=== PATIENT | male | born 1990 | race Caucasian/White ===

== ENCOUNTER 2019-03-11 15:49 | Emergency (ER) | payer OTHER ==
[2019-03-11 16:12] VITALS: RESP 18
[2019-03-11] MEDS ORDERED: SODIUM CHLORIDE 0.9% 1,000 ML IV STA (16:14)
[2019-03-11 17:05] LABS: Basophils % (A) 0 %; Eosinophils # (A) 0.2 k/uL (0-0.7); Eosinophils % (A) 3 %; HCT 48.1 % (39.0-53.0); HGB 16.7 gm/dL (13.0-17.5); Lymphocytes # (A) 0.9 k/uL (1.0-4.8); Lymphocytes % (A) 15 %; MCH 29.1 pg (25.0-35.0); MCHC 34.8 g/dL (31.0-37.0); MCV 83.7 fL (80.0-100.0); Mean Platelet Volume 7.2; Monocytes # (A) 0.6 k/uL (0-1.0); Monocytes % (A) 9 %; Neutrophils # (A) 4.5 k/uL (1.3-7.7); Neutrophils % (A) 71 %; Platelet Count 230 k/uL (150-450); RBC 5.74 m/uL (4.30-5.90); RDW 14.8 % (11.5-15.5); WBC 6.4 k/uL (3.8-10.6)
--- NOTE | 2019-03-11 17:06 | XR ---
EXAMINATION TYPE: XR chest 2V DATE OF EXAM: 03/11/2019 COMPARISON: 08/15/2015 HISTORY: Syncope TECHNIQUE: Frontal and lateral views of the chest are obtained. FINDINGS: Heart and mediastinum are normal. Lungs are clear. Diaphragm is normal. Bony thorax appear s normal. IMPRESSION: Normal chest. No change.
[2019-03-11 17:07] LABS: Partial Thromboplastin Time 24.7 sec (22.0-30.0); Prothrombin Time 10.4 sec (9.0-12.0)
[2019-03-11 17:08] LABS: ALT 32 U/L (21-72); AST 28 U/L (17-59); African American GFR (CKD) >90 (>60 ml/min/1.73 sqM); Albumin 4.5 g/dL (3.5-5.0); Alkaline Phosphatase 72 U/L (38-126); Anion Gap 10 mmol/L; Blood Urea Nitrogen 14 mg/dL (9-20); Calcium 9.4 mg/dL (8.4-10.2); Carbon Dioxide 24 mmol/L (22-30); Chloride 109 mmol/L (98-107); Glucose 115 mg/dL (74-99); Magnesium 2.2 mg/dL (1.6-2.3); Potassium 3.9 mmol/L (3.5-5.1); Sodium 143 mmol/L (137-145); Total Bilirubin 0.4 mg/dL (0.2-1.3); Total Protein 7.4 g/dL (6.3-8.2)
[2019-03-11 17:56] LABS: Amorphous Sediment,Urine Rare /hpf; Appearance,Urine Clear (Clear); Bilirubin,Urine Negative (Negative); Blood,Urine Negative (Negative); Calcium Oxalate Crystals,Urine Few /hpf; Color,Urine Yellow; Glucose,Urine (UA) Trace (Negative); Ketones,Urine Negative (Negative); Leukocyte Esterase,Urine Negative (Negative); Mucus,Urine Few /hpf; Nitrite,Urine Negative (Negative); Protein,Urine 1+ (Negative); Specific Gravity,Urine 1.037 (1.001-1.035); Squamous Epithelial Cell,Urine <1 /hpf (0-4); WBC,Urine 1 /hpf (0-5)
[2019-03-11 17:57] LABS: Amphetamine Screen,Urine Not Detected (NotDetected); Barbiturate Screen,Urine Not Detected (NotDetected); Benzodiazepines Screen,Urine Not Detected (NotDetected); Cocaine Screen,Urine Not Detected (NotDetected); Methadone Screen, Urine Not Detected (NotDetected); Opiate Screen,Urine Not Detected (NotDetected); Oxycodone Screen, Urine Not Detected (NotDetected); Phencyclidine Screen,Urine Not Detected (NotDetected); Tricyclic Antidepressant,Urine Not Detected (NotDetected); Urn Cannabinoid Scrn Not Detected (NotDetected)
--- NOTE | 2019-03-11 17:58 | ED ---
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 Patient states last week he has had cough congestion he states he is a smoker and sometimes his chest is tight when he takes a deep breath. He denies any chest pain or overt shortness of breath. She has a leg swelling history of blood clots. Patient states he thinks he may have been exposed to black mold but is unsure because his house is dirty. In addition patient states that he has had joint pain for the past 2 months he is not sure what is from. Patient denies any penile lesions. Patient denies any headache dizziness neck stiffness fever or chills night sweats. She also states the past 2-3 weeks he has been more fatigued and usual he states he is so tired he was ASLEEP and falls over work. He states he has been caught by his boss sleeping on multiple occassions, he denies passing out, fall or trauma to head or neck. Patient states despite falling asleep at work he states when he comes home he cannot sleep and has been very fatigued. Patient denies any painful nodules on the fingers he denies any rashes he does nausea vomiting abdominal pain or back pain. Remaining review of systems negative upon arrival patient appears well vital signs within acceptable limits. Patient afebrile. - Related Data Previous Rx's Medication Instructions Recorded Albuterol Inhaler [Ventolin Hfa 1 - 2 puff INHALATION RT-Q6H PRN 7 03/11/19 Inhaler] Days #1 inhaler Azithromycin [Zithromax Z-pack] 0 mg PO DIRECTED #6 tab 03/11/19 predniSONE 20 mg PO BID 4 Days #8 tab 03/11/19 Allergies Allergy/AdvReac Type Severity Reaction Status Date / Time No Known Allergies Allergy Verified 03/11/19 16:11 Review of Systems ROS Statement: Those systems with pertinent positive or pertinent negative responses have been documented in the HPI. ROS Other: All systems not noted in ROS Statement are negative. Past Medical History Past Medical History: Respiratory Disorder History of Any Multi-Drug Resistant Organisms: None Reported Additional Past Surgical History / Comment(s): oral surgery Past Psychological History: Anxiety, Depression Smoking Status: Current every day smoker Past Alcohol Use History: Occasional Past Drug Use History: Heroin General Exam - General Exam Comments Initial Comments: General: The patient is awake and alert, in no distress, and does not appear acutely ill. Eye: +3 mm pupils are equal, round and reactive to light, extra-ocular movements are intact. No nystagmus. There is normal conjunctiva bilaterally. No signs of icterus. No photophobia Ears, nose, mouth and throat: There are moist mucous membranes and no oral lesions. Oropharynx was not erythematous there is no tonsillar enlargement exudates or lesions. Uvula midline. Tympanic membranes are not erythematous or is no effusions bulging or retraction. No tenderness to palpation of the mastoid. No anterior cervical lymphadenopathy. Rhinorrhea, clear and bilateral nares. No tripoding, no drooling. Neck: The neck is supple, there is no tenderness or JVD. No nuchal rigidity negative Brudzinski and Kernig Cardiovascular: There is a regular rate and rhythm. No murmur, rub or gallop is appreciated. Respiratory: Expiratory wheeze on exam. respirations are non-labored, breath sounds are equal. No stridor, rales, or rhonchi. No retractions or abdominal breathing. Gastrointestinal: Soft, non-distended, non-tender abdomen without masses or organomegaly noted. There is no rebound or guarding present. Bowel sounds are unremarkable. Musculoskeletal: Normal ROM, no tenderness. Strength 5/5. Sensation intact. Radial pulses equal bilaterally 2+. Neurological: A&O x 3. CN II-XII intact, There are no obvious motor or sensory deficits. Coordination appears grossly intact. Speech appears normal, no muffling. Skin: Skin is warm and dry and no rashes or lesions are noted. No extremity edema Psychiatric: Cooperative Limitations: no limitations Course Vital Signs 03/11/19 03/11/19 03/11/19 16:07 18:17 18:27 Temperature 99.0 F Pulse Rate 72 70 74 Respiratory 18 Rate Blood Pressure 131/77 O2 Sat by Pulse 98 Oximetry 03/11/19 19:15 Temperature 97.9 F Pulse Rate 100 Respiratory 18 Rate Blood Pressure 122/69 O2 Sat by Pulse 98 Oximetry EKG Findings - EKG Comments: EKG Findings:: A 12-lead EKG was performed and shows the following: Rate is 98bp m, and rhythm is normal sinus. There are normal QRS complexes and normal R-wave progression. ST segments have no elevation or depression, and OR segments appear normal. OR interval 140 ms, QRS duration 84 ms, QT/QTC 326/416 ms. Right axis. No ST elevation or depression. EKG compared with that of 2015-no acute changes. Medical Decision Making - Medical Decision Making Appearing 28-year-old male presenting for multiple complaints. Believes is exposed to mold. Lungs have expiratory wheeze on exam. Patient given DuoNeb treatment steroid. Patient is every day smoker. Educated on smoking cessation. Patient states improvement of symptoms. Patient's been complaining of cough. Oropharynx examination unremarkable. Patient denies chest pain. No murmur heard on examination. Patient afebrile. No leukocytosis. Laboratory studies unremarkable. Does complain of nonspecific joint pain of various joints on and off for the past few months. Rheumatological testing was initiated in the emergency department. Endocrine patient follows these results with primary care provider--and also recommended primary follow-up in the next 1-2 days. Patient states he is ready for discharge. He does not want another DuoNeb treatment. There is significant improvement of extremity wheeze. Patient was provided albuterol inhaler outpatient as well as azithromycin and steroids. For treatment of acute bronchitis. Return parameters were discussed at length the patient verbalized understanding. Patient was discharged appearing well after discussing the case with her provider Dr. Dorman - Lab Data Result diagrams: 03/11/19 16:23 03/11/19 16:23 Lab Results 03/11/19 03/11/19 03/11/19 Range/Units 16:23 16:23 16:23 WBC 6.4 (3.8-10.6) k/uL RBC 5.74 (4.30-5.90) m/uL Hgb 16.7 (13.0-17.5) gm/dL Hct 48.1 (39.0-53.0) % MCV 83.7 (80.0-100.0) fL MCH 29.1 (25.0-35.0) pg MCHC 34.8 (31.0-37.0) g/dL RDW 14.8 (11.5-15.5) % Plt Count 230 (150-450) k/uL Neutrophils % 71 % Lymphocytes % 15 % Monocytes % 9 % Eosinophils % 3 % Basophils % 0 % Neutrophils # 4.5 (1.3-7.7) k/uL Lymphocytes # 0.9 L (1.0-4.8) k/uL Monocytes # 0.6 (0-1.0) k/uL Eosinophils # 0.2 (0-0.7) k/uL Basophils # 0.0 (0-0.2) k/uL PT 10.4 (9.0-12.0) sec INR 1.0 (<1.2) APTT 24.7 (22.0-30.0) sec Sodium 143 (137-145) mmol/L Potassium 3.9 (3.5-5.1) mmol/L Chloride 109 H (98-107) mmol/L Carbon Dioxide 24 (22-30) mmol/L Anion Gap 10 mmol/L BUN 14 (9-20) mg/dL Creatinine 0.74 (0.66-1.25) mg/dL Est GFR (CKD-EPI)AfAm >90 (>60 ml/min/1.73 sqM) Est GFR (CKD-EPI)NonAf >90 (>60 ml/min/1.73 sqM) Glucose 115 H (74-99) mg/dL Plasma Lactic Acid Karlos (0.7-2.0) mmol/L Calcium 9.4 (8.4-10.2) mg/dL Magnesium 2.2 (1.6-2.3) mg/dL Total Bilirubin 0.4 (0.2-1.3) mg/dL AST 28 (17-59) U/L ALT 32 (21-72) U/L Alkaline Phosphatase 72 (38-126) U/L Troponin I (0.000-0.034) ng/mL C-Reactive Protein (<10.0) mg/L Total Protein 7.4 (6.3-8.2) g/dL Albumin 4.5 (3.5-5.0) g/dL Urine Color Urine Appearance (Clear) Urine pH (5.0-8.0) Ur Specific Ashburn (1.001-1.035) Urine Protein (Negative) Urine Glucose (UA) (Negative) Urine Ketones (Negative) Urine Blood (Negative) Urine Nitrite (Negative) Urine Bilirubin (Negative) Urine Urobilinogen (<2.0) mg/dL Ur Leukocyte Esterase (Negative) Urine WBC (0-5) /hpf Ur Squamous Epith Cells (0-4) /hpf Calcium Oxalate Crystal (None) /hpf Amorphous Sediment (None) /hpf Urine Mucus (None) /hpf Urine Opiates Screen (NotDetected) Ur Oxycodone Screen (NotDetected) Urine Methadone Screen (NotDetected) Ur Propoxyphene Screen (NotDetected) Ur Barbiturates Screen (NotDetected) U Tricyclic Antidepress (NotDetected) Ur Phencyclidine Scrn (NotDetected) Ur Amphetamines Screen (NotDetected) U Methamphetamines Scrn (NotDetected) U Benzodiazepines Scrn (NotDetected) Urine Cocaine Screen (NotDetected) U Marijuana (THC) Screen (NotDetected) 03/11/19 03/11/19 03/11/19 Range/Units 16:23 16:23 16:23 WBC (3.8-10.6) k/uL RBC (4.30-5.90) m/uL Hgb (13.0-17.5) gm/dL Hct (39.0-53.0) % MCV (80.0-100.0) fL MCH (25.0-35.0) pg MCHC (31.0-37.0) g/dL RDW (11.5-15.5) % Plt Count (150-450) k/uL Neutrophils % % Lymphocytes % % Monocytes % % Eosinophils % % Basophils % % Neutrophils # (1.3-7.7) k/uL Lymphocytes # (1.0-4.8) k/uL Monocytes # (0-1.0) k/uL Eosinophils # (0-0.7) k/uL Basophils # (0-0.2) k/uL PT (9.0-12.0) sec INR (<1.2) APTT (22.0-30.0) sec Sodium (137-145) mmol/L Potassium (3.5-5.1) mmol/L Chloride (98-107) mmol/L Carbon Dioxide (22-30) mmol/L Anion Gap mmol/L BUN (9-20) mg/dL Creatinine (0.66-1.25) mg/dL Est GFR (CKD-EPI)AfAm (>60 ml/min/1.73 sqM) Est GFR (CKD-EPI)NonAf (>60 ml/min/1.73 sqM) Glucose (74-99) mg/dL Plasma Lactic Acid Karlos 1.6 (0.7-2.0) mmol/L Calcium (8.4-10.2) mg/dL Magnesium (1.6-2.3) mg/dL Total Bilirubin (0.2-1.3) mg/dL AST (17-59) U/L ALT (21-72) U/L Alkaline Phosphatase (38-126) U/L Troponin I <0.012 (0.000-0.034) ng/mL C-Reactive Protein 50.9 H (<10.0) mg/L Total Protein (6.3-8.2) g/dL Albumin (3.5-5.0) g/dL Urine Color Urine Appearance (Clear) Urine pH (5.0-8.0) Ur Specific Ashburn (1.001-1.035) Urine Protein (Negative) Urine Glucose (UA) (Negative) Urine Ketones (Negative) Urine Blood (Negative) Urine Nitrite (Negative) Urine Bilirubin (Negative) Urine Urobilinogen (<2.0) mg/dL Ur Leukocyte Esterase (Negative) Urine WBC (0-5) /hpf Ur Squamous Epith Cells (0-4) /hpf Calcium Oxalate Crystal (None) /hpf Amorphous Sediment (None) /hpf Urine Mucus (None) /hpf Urine Opiates Screen (NotDetected) Ur Oxycodone Screen (NotDetected) Urine Methadone Screen (NotDetected) Ur Propoxyphene Screen (NotDetected) Ur Barbiturates Screen (NotDetected) U Tricyclic Antidepress (NotDetected) Ur Phencyclidine Scrn (NotDetected) Ur Amphetamines Screen (NotDetected) U Methamphetamines Scrn (NotDetected) U Benzodiazepines Scrn (NotDetected) Urine Cocaine Screen (NotDetected) U Marijuana (THC) Screen (NotDetected) 03/11/19 Range/Units 17:33 WBC (3.8-10.6) k/uL RBC (4.30-5.90) m/uL Hgb (13.0-17.5) gm/dL Hct (39.0-53.0) % MCV (80.0-100.0) fL MCH (25.0-35.0) pg MCHC (31.0-37.0) g/dL RDW (11.5-15.5) % Plt Count (150-450) k/uL Neutrophils % % Lymphocytes % % Monocytes % % Eosinophils % % Basophils % % Neutrophils # (1.3-7.7) k/uL Lymphocytes # (1.0-4.8) k/uL Monocytes # (0-1.0) k/uL Eosinophils # (0-0.7) k/uL Basophils # (0-0.2) k/uL PT (9.0-12.0) sec INR (<1.2) APTT (22.0-30.0) sec Sodium (137-145) mmol/L Potassium (3.5-5.1) mmol/L Chloride (98-107) mmol/L Carbon Dioxide (22-30) mmol/L Anion Gap mmol/L BUN (9-20) mg/dL Creatinine (0.66-1.25) mg/dL Est GFR (CKD-EPI)AfAm (>60 ml/min/1.73 sqM) Est GFR (CKD-EPI)NonAf (>60 ml/min/1.73 sqM) Glucose (74-99) mg/dL Plasma Lactic Acid Karlos (0.7-2.0) mmol/L Calcium (8.4-10.2) mg/dL Magnesium (1.6-2.3) mg/dL Total Bilirubin (0.2-1.3) mg/dL AST (17-59) U/L ALT (21-72) U/L Alkaline Phosphatase (38-126) U/L Troponin I (0.000-0.034) ng/mL C-Reactive Protein (<10.0) mg/L Total Protein (6.3-8.2) g/dL Albumin (3.5-5.0) g/dL Urine Color Yellow Urine Appearance Clear (Clear) Urine pH 6.0 (5.0-8.0) Ur Specific Ashburn 1.037 H (1.001-1.035) Urine Protein 1+ H (Negative) Urine Glucose (UA) Trace H (Negative) Urine Ketones Negative (Negative) Urine Blood Negative (Negative) Urine Nitrite Negative (Negative) Urine Bilirubin Negative (Negative) Urine Urobilinogen 2.0 (<2.0) mg/dL Ur Leukocyte Esterase Negative (Negative) Urine WBC 1 (0-5) /hpf Ur Squamous Epith Cells <1 (0-4) /hpf Calcium Oxalate Crystal Few H (None) /hpf Amorphous Sediment Rare H (None) /hpf Urine Mucus Few H (None) /hpf Urine Opiates Screen Not Detected (NotDetected) Ur Oxycodone Screen Not Detected (NotDetected) Urine Methadone Screen Not Detected (NotDetected) Ur Propoxyphene Screen Not Detected (NotDetected) Ur Barbiturates Screen Not Detected (NotDetected) U Tricyclic Antidepress Not Detected (NotDetected) Ur Phencyclidine Scrn Not Detected (NotDetected) Ur Amphetamines Screen Not Detected (NotDetected) U Methamphetamines Scrn Not Detected (NotDetected) U Benzodiazepines Scrn Not Detected (NotDetected) Urine Cocaine Screen Not Detected (NotDetected) U Marijuana (THC) Screen Not Detected (NotDetected) Disposition Clinical Impression: Bronchitis, Cough, Fatigue Disposition: HOME SELF-CARE Condition: Good Instructions (If sedation given, give patient instructions): How to Stop Smoking (ED), Acute Bronchitis (ED) Additional Instructions: Please use medication as discussed. Please follow-up with family doctor in the next 2 days, please retrieve records from the hospital to review with primary care provider, and to review results from rheumatoid testing. Please return to emergency room if the symptoms increase or worsen or for any other concerns. Please refrain from smoking. Prescriptions: predniSONE 20 mg PO BID 4 Days #8 tab Albuterol Inhaler [Ventolin Hfa Inhaler] 1 - 2 puff INHALATION RT-Q6H PRN 7 Days #1 inhaler PRN Reason: Wheezing Azithromycin [Zithromax Z-pack] 0 mg PO DIRECTED #6 tab Is patient prescribed a controlled substance at d/c from ED?: No Referrals: Christian Schmitz MD [Primary Care Provider] - 1-2 days Time of Disposition: 18:58
[2019-03-11] MEDS ORDERED: IPRATROPIUM-ALBUTEROL 3 ML NEB INHALATION STA (17:59)
[2019-03-11] MEDS ORDERED: methylPREDNISolone SOD SUCCI 125 MG/2 ML VIAL IV STA (17:59)
[2019-03-11 19:16] VITALS: BP 122/69; PULSE 100; TEMP 97.9
[2019-03-12 09:34] LABS: Rheumatoid Factor 12 IU/mL (0-15)
--- NOTE | 2019-03-13 05:42 | CDI ---
Documentation Clarification OP Dear Samina FOURNIER, PAC Please provide smoking cessation total time spent on counselling . Thank you, Kathy Jim Flagman If you have any questions, please contact Tram Driver at [phone] [facility]
== END 2019-03-11 19:15 | disposition home or self-care (01) ==
LOC: EC 15:49
DX: J20.9 Acute bronchitis, unspecified (principal); M79.89 Other specified soft tissue disorders; F17.200 Nicotine dependence, unspecified, uncomplicated; Z71.6 Tobacco abuse counseling
CPT/HCPCS: 99283; 96374; 96361; 99406; 36415; 94640; 93005; 80053; 83605; 83735; 84484; 85025; 85610; 85730; 86140; 86431; 81001; 87040; 86038; 80306; 71046; J2930

== ENCOUNTER 2019-07-17 13:41 | Emergency (ER) | payer OTHER ==
[2019-07-17 13:47] VITALS: TEMP 97.8
--- NOTE | 2019-07-17 14:36 | ED ---
Lower Extremity Injury HPI - General Chief Complaint: Extremity Injury, Lower Stated Complaint: Leg pain Time Seen by Provider: 07/17/19 13:58 Source: patient Mode of arrival: ambulatory Limitations: no limitations - History of Present Illness Initial Comments: 28-year-old male denies past medical history present to ER for right hip low back pain. Patient states that he did a front flip off a picnic table approximately 3 and half weeks ago. Patient states that he has had pain in the right leg sense near the pelvic region since. Patient states makes walking difficult. Patient denies any paresthesias and numbness muscle weakness loss of sensation loss of bowel bladder control, urinary retention, fevers, IVDU, Hx of CA. Patient denies any injury to chest, neck or head. Denies LOC at time. Denies any other complaints aside from the hip,back,pelvic pain. Pt ambulatory on arrival, no signs of distress. - Related Data Allergies Allergy/AdvReac Type Severity Reaction Status Date / Time No Known Allergies Allergy Verified 07/17/19 13:47 Review of Systems ROS Statement: Those systems with pertinent positive or pertinent negative responses have been documented in the HPI. ROS Other: All systems not noted in ROS Statement are negative. 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 Eye: +3 mm pupils are equal, round and reactive to light, extra-ocular movements are intact. No nystagmus. There is normal conjunctiva bilaterally. No signs of icterus. Ears, nose, mouth and throat: There are moist mucous membranes and no oral lesions. Neck: The neck is supple, there is no tenderness or JVD. Cardiovascular: There is a regular rate and rhythm. No murmur, rub or gallop is appreciated. Respiratory: Lungs are clear to auscultation, respirations are non-labored, breath sounds are equal. No wheezes, stridor, rales, or rhonchi. Gastrointestinal: Soft, non-distended, non-tender abdomen without masses or organomegaly noted. There is no rebound or guarding present. No CVA tenderness. Bowel sounds are unremarkable. Musculoskeletal: No bruising of the spine, paravertebral tenderness noted of the right side of lumbar spine. No thoracic or cervical spine pain to palpation. Normal inspection of the low back hips motion wheeze bilaterally. No ecchymosis soft tissue swelling or redness. Patient noted to fully range at the hips knees and ankles bilaterally. Strength 5/5 of the left LE, refuses to fully strength test right LE secondary to pain in the hp. Sensation intact including saddle region. DP pulses equal bilaterally 2+. No calf swelling. Neurological: A&O x 3. CN II-XII intact grossly, There are no obvious motor or sensory deficits. Coordination appears grossly intact. Speech is normal. Skin: Skin is warm and dry and no rashes or lesions are noted. Psychiatric: Cooperative, appropriate mood & affect, normal judgment. Limitations: no limitations Course Vital Signs 07/17/19 13:43 Temperature 97.8 F Pulse Rate 91 Respiratory 20 Rate Blood Pressure 126/71 O2 Sat by Pulse 95 Oximetry Medical Decision Making - Medical Decision Making 28-year-old male presents emergency department for evaluation of hip pain after fall 3.5 weeks ago. XR suspicious for inferior rami fracture. CT confirmed non displaced fracture. No lumbar abnormalities noted. No other ring fractures appreciated. Discussed case with attending provider Dr. Negron who recommended ordering patient non weight bearing with crutches and given orthopedic f/u. Patient agreeable with care plan. Discharged appearing well, agreeable with return parameters and discharge. Disposition Clinical Impression: Inferior pubic ramus fracture, Right hip pain, Fall Disposition: HOME SELF-CARE Condition: Good Instructions (If sedation given, give patient instructions): Pelvic Fracture (ED) Additional Instructions: Please use medication as discussed. Please follow-up with orthopedic surgery within the next week. Please return to emergency room if the symptoms increase or worsen or for any other concerns. Is patient prescribed a controlled substance at d/c from ED?: No Referrals: None,Stated [Primary Care Provider] - 1-2 days Jerry Vivar MD [STAFF PHYSICIAN] - 1-2 days Time of Disposition: 16:20
--- NOTE | 2019-07-17 14:47 | XR ---
EXAM TYPE: LUMBAR SPINE X RAY SERIES COMPARISON: NONE HISTORY: pain, TECHNIQUE: 3 views are submitted. FINDINGS: Alignment is anatomic. The pedicles are intact. The transverse processes are intact. There is no spondylolisthesis. IMPRESSION: 1. No acute process.
--- NOTE | 2019-07-17 14:50 | XR ---
EXAMINATION TYPE: XR Hip RT and AP Pelvis DATE OF EXAM: 07/17/2019 COMPARISON: NONE HISTORY: pain TECHNIQUE: A single AP view of the pelvis is obtained. Two views of the right hip are obtained. FINDINGS: There is a calcification along the acetabular rim be associated with chronic acetabular la bral tear. The femur and femoral neck appear to be intact. There is a subtle deformity along the righ t inferior pubic ramus vague haziness along the cortical margin. This is seen adjacent to the pubic s ymphysis paramedian to the right. SI joints are symmetric. IMPRESSION: 1. Question a deformity involving the right inferior pubic ramus correlate with point tenderness and if necessary with CT of the pelvis.
--- NOTE | 2019-07-17 16:05 | CT ---
EXAMINATION TYPE: CT lumbar spine wo con, CT pelvis wo con DATE OF EXAM: 07/17/2019 COMPARISON: Plain films same date HISTORY: pain post fall. leg weakness. CT DLP: 477.2 (accession [id number]), 205.4 (accession [id number]) mGycm Automated exposure control for dose reduction was used. An unenhanced CT of the lumbar spine and pelvis was performed. Bone and soft tissue window settings are submitted as well as coronal and sagittal reconstructions. FINDINGS: Lumbar vertebral bodies show preserved height and alignment. Disc spaces are maintained. No evident s mariela stenosis or foraminal encroachment. No evident disc herniation. Nonobstructive calculus present at the lower pole the right kidney is only 2 mm in size. Inferior pubic ramus fracture on the right is noted, there may be associated callus formation. More subtle fracture involves the medial aspect o f the acetabulum which is nondisplaced, coronal image #38 through the pelvis, axial image #60 L1-L2: Normal disc space height. No disc herniation protrusion or central stenosis. No facet joint arthropathy. No evidence for foraminal encroachment. L2-L3: Normal disc space height. No disc herniation protrusion or central stenosis. No facet joint arthropathy. No evidence for foraminal encroachment. L3-L4: Normal disc space height. No disc herniation protrusion or central stenosis. No facet joint arthropathy. No evidence for foraminal encroachment. L4-L5: Normal disc space height. No disc herniation protrusion or central stenosis. No facet joint arthropathy. No evidence for foraminal encroachment. L5-S1: Normal disc space height. No disc herniation protrusion or central stenosis. No facet joint arthropathy. No evidence for foraminal encroachment. IMPRESSION: Inferior pubic ramus fracture on the right correlates with patient's plain film. Subtle a rticular fracture involving the junction of the ramus with the ischium at the medial aspect of the ac etabulum. No paraspinal masses are identified. Lumbar segments are intact.
[2019-07-17] MEDS ORDERED: ACET/COD 300 MG/30 MG STARTER PACK 6 TAB BTL PO STA (16:28)
[2019-07-17 17:13] VITALS: BP 124/78; PULSE 88; RESP 16
== END 2019-07-17 16:34 | disposition home or self-care (01) ==
LOC: EC 13:41 → MERGE 13:41 → EC 16:34
DX: S32.591A Other specified fracture of right pubis, initial encounter for closed fracture (principal); F17.200 Nicotine dependence, unspecified, uncomplicated; X58.XXXA Exposure to other specified factors, initial encounter
CPT/HCPCS: 72100; 72131; 72192; 73502; 99284

== ENCOUNTER 2019-09-25 12:55 | Emergency (ER) | payer OTHER ==
[2019-09-25 13:54] VITALS: BP 124/80; PULSE 93; RESP 17; TEMP 98.1
--- NOTE | 2019-09-25 14:18 | ED ---
ENT HPI - General Chief complaint: Dental/Oral Stated complaint: lt sided jaw pain Time Seen by Provider: 09/25/19 13:59 Source: patient, RN notes reviewed Mode of arrival: ambulatory Limitations: no limitations - History of Present Illness Initial comments: 28-year-old male presents emergency Department chief complaint left-sided throat pain, jaw pain. Patient states he is awake ulcerated area by his upper left side. Patient states is painful states it hurts to open close in it. Patient states that he's had no prior oral surgeries. Denies any missing dentition no fevers or chills. He does milligrams his teeth at nighttime. - Related Data Previous Rx's Medication Instructions Recorded Albuterol Inhaler [Ventolin Hfa 1 - 2 puff INHALATION RT-Q6H PRN 7 03/11/19 Inhaler] Days #1 inhaler Azithromycin [Zithromax Z-pack] 0 mg PO DIRECTED #6 tab 03/11/19 predniSONE 20 mg PO BID 4 Days #8 tab 03/11/19 Allergies Allergy/AdvReac Type Severity Reaction Status Date / Time No Known Allergies Allergy Verified 07/18/19 13:45 Review of Systems ROS Statement: Those systems with pertinent positive or pertinent negative responses have been documented in the HPI. ROS Other: All systems not noted in ROS Statement are negative. Past Medical History Past Medical History: Respiratory Disorder Additional Past Medical History / Comment(s): Aspergers History of Any Multi-Drug Resistant Organisms: None Reported Additional Past Surgical History / Comment(s): dental surgery Past Psychological History: Anxiety, Depression Smoking Status: Current every day smoker Past Alcohol Use History: Occasional Past Drug Use History: Heroin, None Reported General Exam Limitations: no limitations General appearance: alert, in no apparent distress Head exam: Present: atraumatic, normocephalic, normal inspection Eye exam: Present: normal appearance, PERRL, EOMI. Absent: scleral icterus, conjunctival injection, periorbital swelling ENT exam: Present: mucous membranes moist. Absent: normal exam, normal oropharynx (Patient has noted injury to the vehicle, [employer], there is an ulceration at slightly erythematous surrounding behind tooth #16) Neck exam: Present: normal inspection, full ROM. Absent: tenderness, meningi smus, lymphadenopathy Respiratory exam: Present: normal lung sounds bilaterally. Absent: respiratory distress, wheezes, rales, rhonchi, stridor Cardiovascular Exam: Present: regular rate, normal rhythm, normal heart sounds. Absent: systolic murmur, diastolic murmur, rubs, gallop, clicks Neurological exam: Present: alert Skin exam: Present: warm, dry, intact, normal color. Absent: rash Course Vital Signs 09/25/19 13:51 Temperature 98.1 F Pulse Rate 93 Respiratory 17 Rate Blood Pressure 124/80 O2 Sat by Pulse 96 Oximetry Medical Decision Making - Medical Decision Making X-rays are unremarkable. Patient has TMJ type symptoms in the left, there is an the canker sore noted. Patient will be discharged return parameters were discussed. Disposition Clinical Impression: Temporomandibular joint disorder, Canker sore Disposition: HOME SELF-CARE Condition: Stable Instructions (If sedation given, give patient instructions): Temporomandibular Disorder (ED), Canker Sores (ED) Additional Instructions: Please return to the Emergency Department if symptoms worsen or any other concerns. Is patient prescribed a controlled substance at d/c from ED?: No Referrals: None,Stated [Primary Care Provider] - 1-2 days Time of Disposition: 15:14
--- NOTE | 2019-09-25 14:35 | XR ---
EXAMINATION TYPE: XR mandible complete DATE OF EXAM: 09/25/2019 COMPARISON: NONE HISTORY: Left-sided pain TECHNIQUE: 5 views FINDINGS: Mandibular ring is intact. Maxilla appears intact. Temporomandibular joints appear intact. There is no evidence of a fracture. IMPRESSION: Negative mandible exam. No fracture.
== END 2019-09-25 15:48 | disposition home or self-care (01) ==
LOC: EC 12:55
DX: K12.0 Recurrent oral aphthae (principal); M26.602 Left temporomandibular joint disorder, unspecified; F17.200 Nicotine dependence, unspecified, uncomplicated
CPT/HCPCS: 70110; 99283

== ENCOUNTER 2019-12-08 17:39 | Emergency (ER) | payer OTHER ==
[2019-12-08 17:44] VITALS: RESP 18
--- NOTE | 2019-12-08 17:58 | ED ---
Upper Extremity HPI - General Chief Complaint: Extremity Injury, Upper Stated Complaint: [facility] Injury Time Seen by Provider: 12/08/19 17:46 Source: patient Mode of arrival: ambulatory Limitations: no limitations - History of Present Illness Initial Comments: 28-year-old male presenting for right index finger injury. Patient states he crushed his right index finger in a machine at work. He states he sustained an abrasion over the PIP joint. Patient states he is able to fully range the digit however is swollen. Patient has a numbness tingling or loss sensation he denies any decreased strength. Patient denies any injury to the hand distal to the MCP joint he denies any pain in the wrists or elbows. Patient denies any varus or injury to the large laceration. Patient states he cleansed it extensively after the injury occurred and placed antibiotic ointment and a bandage. Remaining review of system negative.States tetanus is UTD. - Related Data Previous Rx's Medication Instructions Recorded Albuterol Inhaler [Ventolin Hfa 1 - 2 puff INHALATION RT-Q6H PRN 7 03/11/19 Inhaler] Days #1 inhaler Azithromycin [Zithromax Z-pack] 0 mg PO DIRECTED #6 tab 03/11/19 predniSONE [Deltasone] 20 mg PO BID 4 Days #8 tab 03/11/19 Allergies Allergy/AdvReac Type Severity Reaction Status Date / Time No Known Allergies Allergy Verified 12/08/19 17:44 Review of Systems ROS Statement: Those systems with pertinent positive or pertinent negative responses have been documented in the HPI. ROS Other: All systems not noted in ROS Statement are negative. Past Medical History Past Medical History: Respiratory Disorder Additional Past Medical History / Comment(s): Aspergers History of Any Multi-Drug Resistant Organisms: None Reported Past Surgical History: No Surgical Hx Reported Additional Past Surgical History / Comment(s): dental surgery Past Psychological History: Anxiety, Depression Smoking Status: Current every day smoker Past Alcohol Use History: Occasional Past Drug Use History: Heroin, None Reported General Exam - General Exam Comments Initial Comments: General: The patient is awake and alert, in no distress, and does not appear acutely ill. Eye: +3 mm pupils are equal, round and reactive to light, extra-ocular movements are intact. No nystagmus. There is normal conjunctiva bilaterally. No signs of icterus. Ears, nose, mouth and throat: There are moist mucous membranes and no oral lesions. Neck: The neck is supple, there is no tenderness or JVD. Cardiovascular: There is a regular rate and rhythm. No murmur, rub or gallop is appreciated. Respiratory: Lungs are clear to auscultation, respirations are non-labored, breath sounds are equal. No wheezes, stridor, rales, or rhonchi. Gastrointestinal: Soft, non-distended, non-tender abdomen without masses or organomegaly noted. There is no rebound or guarding present. Musculoskeletal: Upon inspection of the hands b/l there is a superficial abrasion at the DIP joint. Slight decrease of ROM with flexion at the DIP joint, otherwise normal ROM at MCP and PIP joint. Strength appears preserved no forced flexed or extended positioning. Sensation intact proximal or distal to injury site. Radial pulses equal bilaterally 2+.Capillary refill < 3 seconds. Neurological: A&O x 3. CN II-XII intact grossly, There are no obvious motor or sensory deficits. Coordination appears grossly intact. Speech is normal. Skin: Skin is warm and dry and no rashes or lesions are noted. Psychiatric: Cooperative, appropriate mood & affect, normal judgment. Limitations: no limitations Course Vital Signs 12/08/19 12/08/19 17:42 18:55 Temperature 97.6 F 97.2 F L Pulse Rate 101 H 97 Respiratory 18 18 Rate Blood Pressure 135/87 136/86 O2 Sat by Pulse 98 98 Oximetry Procedures - Orthopedic Splinting/Casting Injury #1 Side: right Upper Extremity Injury Location: finger (rounded flexed finger splint distal to the MCP joint) Medical Decision Making - Medical Decision Making 28-year-old male presents today for right index finger pain x 2 days. No obvious tendon injury but subtle decrease in ROM at the DIP joint concerning for underlying injury, xr negative for fracture, patient was splinted. tetanus UTD. No other injuries noted. Patient was instructed to f/u with orthopedic surgery in 2-3 days and pcp in 1-2 days. Return parameters discussed and patient was discharged appearing well after discussing case with Dr. Goff Disposition Clinical Impression: Injury of right index finger, Skin abrasion Disposition: HOME SELF-CARE Condition: Good Instructions (If sedation given, give patient instructions): Finger Sprain (ED) Additional Instructions: Please use medication as discussed. Please follow-up with family doctor in the next 2 days, and orthopedic surgery in next 2-3 days for further evaluation of finger. Please return to emergency room if the symptoms increase or worsen or for any other concerns. Is patient prescribed a controlled substance at d/c from ED?: No Referrals: Christian Schmitz MD [Primary Care Provider] - 1-2 days Hipolito Barraza MD [STAFF PHYSICIAN] - 1-2 days Time of Disposition: 18:45
--- NOTE | 2019-12-08 18:33 | XR ---
EXAMINATION TYPE: XR hand complete RT DATE OF EXAM: 12/08/2019 COMPARISON: NONE HISTORY: Injury. Pain. TECHNIQUE: 3 views. FINDINGS: Metacarpals appear intact. I see no fracture nor dislocation. Index finger is intact. IMPRESSION: Negative right hand exam.
[2019-12-08 18:57] VITALS: BP 136/86; PULSE 97; TEMP 97.2
== END 2019-12-08 18:55 | disposition home or self-care (01) ==
LOC: EC 17:39
DX: S60.410A Abrasion of right index finger, initial encounter (principal); F17.200 Nicotine dependence, unspecified, uncomplicated; W31.89XA Contact with other specified machinery, initial encounter; Y92.69 Other specified industrial and construction area as the place of occurrence of the external cause; Y99.0 Civilian activity done for income or pay
CPT/HCPCS: 99283

== ENCOUNTER 2019-12-15 18:39 | Emergency (ER) | payer OTHER ==
[2019-12-15 19:00] VITALS: BP 123/85; PULSE 93; RESP 18; TEMP 97.5
--- NOTE | 2019-12-15 19:21 | ED ---
Nausea/Vomiting/Diarrhea HPI - General Chief complaint: Nausea/Vomiting/Diarrhea Stated complaint: nausea Time Seen by Provider: 12/15/19 19:04 Source: patient Mode of arrival: ambulatory Limitations: no limitations - History of Present Illness Initial comments: 29-year-old male patient presents to the emergency department today to obtain clearance for work. Patient states that he called in this morning due to having a headache and vomiting several times. Patient states that his work does not want him to return for 14 days due to possibility of a COVID-19 infection. Patient states that he has no upper respiratory symptoms, no fever, and feels well. Patient denies any recent travel, or contact with anyone who has strep recently. Denies any contact with anyone who is been diagnosed with COVID-19. Patient states that all symptoms have resolved after taking a nap. Patient states he is eating and drinking without difficulty. Denies any current headache. Patient denies any recent rash, cough, shortness of breath, chest pain, abdominal pain, diarrhea, constipation, back pain, numbness, tingling, dizziness, weakness, hematuria, dysuria, urinary urgency, urinary frequency, visual changes, or any other complaints. - Related Data Previous Rx's Medication Instructions Recorded Albuterol Inhaler [Ventolin Hfa 1 - 2 puff INHALATION RT-Q6H PRN 7 03/11/19 Inhaler] Days #1 inhaler Azithromycin [Zithromax Z-pack] 0 mg PO DIRECTED #6 tab 03/11/19 predniSONE [Deltasone] 20 mg PO BID 4 Days #8 tab 03/11/19 Allergies Allergy/AdvReac Type Severity Reaction Status Date / Time No Known Allergies Allergy Verified 12/15/19 19:00 Review of Systems ROS Statement: Those systems with pertinent positive or pertinent negative responses have been documented in the HPI. ROS Other: All systems not noted in ROS Statement are negative. Past Medical History Past Medical History: Respiratory Disorder Additional Past Medical History / Comment(s): Aspergers History of Any Multi-Drug Resistant Organisms: None Reported Past Surgical History: No Surgical Hx Reported Additional Past Surgical History / Comment(s): dental surgery Past Psychological History: Anxiety, Depression Smoking Status: Current every day smoker Past Alcohol Use History: Occasional Past Drug Use History: Heroin, None Reported General Exam Limitations: no limitations General appearance: alert, in no apparent distress, other (This is a well- developed, well-nourished adult male patient in no acute distress. Vital signs upon presentation are temperature 97.5F, pulse 93, respirations 18, blood pressure 123/85, pulse ox 99% on room air.) Eye exam: Present: normal appearance, PERRL, EOMI. Absent: scleral icterus, conjunctival injection, periorbital swelling ENT exam: Present: normal exam, normal oropharynx, mucous membranes moist Respiratory exam: Present: normal lung sounds bilaterally. Absent: respiratory distress, wheezes, rales, rhonchi, stridor Cardiovascular Exam: Present: regular rate, normal rhythm, normal heart sounds. Absent: systolic murmur, diastolic murmur, rubs, gallop, clicks GI/Abdominal exam: Present: soft, normal bowel sounds. Absent: distended, tenderness, guarding, rebound, rigid Neurological exam: Present: alert, oriented X3, CN II-XII intact Psychiatric exam: Present: normal affect, normal mood Skin exam: Present: warm, dry, intact, normal color. Absent: rash Course Vital Signs 12/15/19 18:57 Temperature 97.5 F L Pulse Rate 93 Respiratory 18 Rate Blood Pressure 123/85 O2 Sat by Pulse 99 Oximetry Medical Decision Making - Medical Decision Making 29-year-old male patient presented to the emergency department today to obtain work clearance. Physical examination was unremarkable. Abdomen soft and nontender. Patient is no pharyngeal erythema. No upper respiratory symptoms. Lungs are clear to auscultation with good air movement. Patient is low risk for exposure to COVID-19 and does not currently exhibit any symptoms. Patient will be cleared to return to work. Patient declines testing for his nausea and vomiting episodes as he is currently feeling well and has tolerated oral intake. He is instructed to follow-up with his primary care physician for recheck in 1- 2 days. Return parameters were discussed in detail. He verbalizes understanding and agrees with this plan. Disposition Clinical Impression: Vomiting, Headache Disposition: HOME SELF-CARE Condition: Good Instructions (If sedation given, give patient instructions): Acute Headache (ED), Acute Nausea and Vomiting (ED) Additional Instructions: Increase fluids. Rest. Follow-up through primary care physician for recheck in 1-2 days. Return to the emergency department immediately for any new, worsening, or concerning symptoms. Is patient prescribed a controlled substance at d/c from ED?: No Referrals: Christian Schmitz MD [Primary Care Provider] - 1-2 days Time of Disposition: 19:20
== END 2019-12-15 19:27 | disposition home or self-care (01) ==
LOC: EC 18:39
DX: R51 Headache (principal); R11.2 Nausea with vomiting, unspecified; Z53.29 Procedure and treatment not carried out because of patient's decision for other reasons; F17.200 Nicotine dependence, unspecified, uncomplicated
CPT/HCPCS: 99283

== ENCOUNTER 2025-01-24 14:38 | Emergency (ER) | payer OTHER ==
--- NOTE | 2025-01-24 16:25 | ED ---
General Adult HPI - General Chief complaint: Recheck/Abnormal Lab/Rx Stated complaint: Mental Health Eval. Time Seen by Provider: 01/24/25 16:20 Source: patient, RN notes reviewed Mode of arrival: ambulatory Limitations: no limitations - History of Present Illness Initial comments: 34-year-old male presenting for mental health evaluation. States he wants to admit himself to the mental health unit due to his overthinking and his lack of sleep. Denies suicidal ideation however states if someone hurt him and killed him he would not be upset about it. Denies homicidal ideation. States he tried to self medicate with meth use, last use was yesterday, however it has not been helping. No other medical complaints at this time. - Related Data Previous Rx's Medication Instructions Recorded Albuterol Inhaler [Ventolin Hfa 1 - 2 puff INHALATION RT-Q6H PRN 7 03/11/19 Inhaler] Days #1 inhaler Azithromycin [Zithromax Z-pack (6 0 mg PO DIRECTED #6 tab 03/11/19 tabs)] predniSONE [Deltasone] 20 mg PO BID 4 Days #8 tab 03/11/19 Allergies Allergy/AdvReac Type Severity Reaction Status Date / Time No Known Allergies Allergy Verified 12/15/19 19:00 Review of Systems ROS Statement: Those systems with pertinent positive or pertinent negative responses have been documented in the HPI. ROS Other: All systems not noted in ROS Statement are negative. 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 Absent: scleral icterus, conjunctival injection, periorbital swelling Neurological exam: Present: alert, oriented X3 Psychiatric exam: Present: normal affect, normal mood. Absent: homicidal ideation, suicidal ideation Skin exam: Present: warm, dry, intact, normal color. Absent: rash Course Vital Signs 01/24/25 14:43 Temperature 98 F Pulse Rate 97 Respiratory 18 Rate Blood Pressure 143/82 O2 Sat by Pulse 98 Oximetry Medical Decision Making - Medical Decision Making Was pt. sent in by a medical professional or institution (, PA, DENTURE PROCESSOR, urgent care, hospital, or fci...) When possible be specific @ -No Did you speak to anyone other than the patient for history (EMS, parent, family, police, friend...)? What history was obtained from this source @ -No Did you review nursing and triage notes (agree or disagree)? Why? @ -I reviewed and agree with nursing and triage notes Were old charts reviewed (outside hosp., previous admission, EMS record, old EKG, old radiological studies, urgent care reports/EKG's, fci records)? Report findings @ -No old charts were reviewed Differential Diagnosis (chest pain, altered mental status, abdominal pain women, abdominal pain men, vaginal bleeding, weakness, fever, dyspnea, syncope, headache, dizziness, GI bleed, back pain, seizure, CVA, palpatations, mental health, musculoskeletal)? @ -Differential Mental Health Depression, anxiety, bipolar, psychosis, schizophrenia, borderline personality, situational depression, adjustment disorder, behavioral disorder, brain tumor, malingering, substance abuse, encephalopathy, medication reaction, dementia, hypothyroidism, degenerative neurologic disorder, lupus.... This is not meant to be all-inclusive list EKG interpreted by me (3pts min.). @ -None X-rays interpreted by me (1pt min.). @ -None done CT interpreted by me (1pt min.). @ -None done U/S interpreted by me (1pt. min.). @ -None done What testing was considered but not performed or refused? (CT, X-rays, U/S, labs)? Why? @ -None What meds were considered but not given or refused? Why? @ -None Did you discuss the management of the patient with other professionals (professionals i.e. , MADONNA, DENTURE PROCESSOR, lab, RT, psych nurse, social sciences instructor, corporate lawyer, teacher, contract officer, caser in)? Give summary @ -I spoke with Raya from [facility] who determines patient does not meet inpatient criteria at this time. Patient was given resources for outpatient follow-up Was smoking cessation discussed for >3mins.? @ -No Was critical care preformed (if so, how long)? @ -No Were there social determinants of health that impacted care today? How? (Homelessness, low income, unemployed, alcoholism, drug addiction, transportation, low edu. Level, literacy, decrease access to med. care, prison, rehab)? @ -No Was there de-escalation of care discussed even if they declined (Discuss DNR or withdrawal of care, Hospice)? DNR status @ -No What co-morbidities impacted this encounter? (DM, HTN, Smoking, COPD, CAD, Cancer, CVA, ARF, Chemo, Hep., AIDS, mental health diagnosis, sleep apnea, morbid obesity)? @ -None Was patient admitted / discharged? Hospital course, mention meds given and route, prescriptions, significant lab abnormalities, going to OR and other pertinent info. @ -Discharge. 34-year-old male presenting for mental health evaluation. Denies suicidal or homicidal ideation. No other medical complaints at this time. Patient is medically cleared to be seen by EPS at this time. I spoke with Raya from [facility] who determines patient does not meet inpatient criteria at this time. Patient was given resources for outpatient follow-up. Case was discussed with my ED attending Dr. Goff. Undiagnosed new problem with uncertain prognosis? @ -No Drug Therapy requiring intensive monitoring for toxicity (Heparin, Nitro, Insulin, Cardizem)? @ -No Were any procedures done? @ -No Diagnosis/symptom? @ -Mental health problem Acute, or Chronic, or Acute on Chronic? @ -Acute Uncomplicated (without systemic symptoms) or Complicated (systemic symptoms)? @ -Complicated Side effects of treatment? @ -No Exacerbation, Progression, or Severe Exacerbation? @ -No Poses a threat to life or bodily function? How? (Chest pain, [place], [place], pneumonia, PE, COPD, DKA, ARF, appy, cholecystitis, CVA, Diverticulitis, Homicidal, Suicidal, threat to staff... and all critical care pts) @ -Not at this time - Lab Data Lab Results 01/24/25 Range/Units 16:51 Urine Opiates Screen Not Detected (NotDetected) Ur Oxycodone Screen Not Detected (NotDetected) Urine Methadone Screen Not Detected (NotDetected) Ur Barbiturates Screen Not Detected (NotDetected) U Tricyclic Antidepress Not Detected (NotDetected) Ur Phencyclidine Scrn Not Detected (NotDetected) Ur Amphetamines Screen Detected H (NotDetected) U Methamphetamines Scrn Detected H (NotDetected) U Benzodiazepines Scrn Not Detected (NotDetected) Urine Cocaine Screen Not Detected (NotDetected) U Marijuana (THC) Screen Detected H (NotDetected) Disposition Clinical Impression: Mental health problem Disposition: HOME SELF-CARE Condition: Stable Additional Instructions: Follow-up with PCP as discussed. Please return to the Emergency Department if symptoms worsen or any other concerns. Is patient prescribed a controlled substance at d/c from ED?: No Referrals: None,Stated [Primary Care Provider] - 1-2 days Time of Disposition: 18:23
[2025-01-24 17:49] LABS: Amphetamine Screen,Urine Detected (NotDetected); Barbiturate Screen,Urine Not Detected (NotDetected); Benzodiazepines Screen,Urine Not Detected (NotDetected); Cocaine Screen,Urine Not Detected (NotDetected); Methadone Screen, Urine Not Detected (NotDetected); Opiate Screen,Urine Not Detected (NotDetected); Oxycodone Screen, Urine Not Detected (NotDetected); Phencyclidine Screen,Urine Not Detected (NotDetected); Tricyclic Antidepressant,Urine Not Detected (NotDetected); Urn Cannabinoid Scrn Detected (NotDetected)
[2025-01-24 18:36] VITALS: BP 119/83; PULSE 77; RESP 16; TEMP 98
== END 2025-01-24 18:57 | disposition home or self-care (01) ==
LOC: EC 14:38
DX: F99 Mental disorder, not otherwise specified (principal); F17.200 Nicotine dependence, unspecified, uncomplicated
CPT/HCPCS: 80306; 82075; 99283